=== PATIENT | female | born 1985 | race Hispanic/Latino ===

== ENCOUNTER → 2024-11-23 10:18 | Outpatient (REF) | payer OTHER, SELFPAY ==
[2024-11-23 11:43] LABS: Hematocrit 39.2 % (37.0-47.0); Hemoglobin 13.3 g/dL (12.0-16.0); Mean Corp Hgb Conc. 33.9 g/dL (33.0-37.0); Mean Corpuscular Hgb 30.5 pg (27.0-31.0); Mean Corpuscular Volume 89.9 fL (81.0-99.0); Mean Platelet Volume 11.6 fL (7.4-10.4); Platelet Count 265 10^3/uL (130-400); Red Blood Cell Count 4.36 10^6/uL (4.20-5.40); White Blood Cell Count 6.2 10^3/uL (4.8-10.8)
[2024-11-23 12:08] LABS: ALT (SGPT) 47 U/L (0-35); AST (SGOT) 27 U/L (14-36); Alkaline Phosphatase 173 U/L (38-126); Blood Urea Nitrogen 12 mg/dl (7-17); Calcium 11.5 mg/dl (8.4-10.2); Carbon Dioxide 26 mmol/L (22-30); Chloride 110 mmol/L (98-107); Glucose 102 mg/dl (70-99); HDL Cholesterol 38 mg/dl; LDL Cholesterol, Calculated 156 mg/dl; Potassium 4.8 mmol/L (3.5-5.1); Sodium 141 mmol/L (135-145); Total Bilirubin 0.5 mg/dl (0.2-1.3); Total Cholesterol 225 mg/dl (50-199); Triglyceride 157 mg/dl (10-149); Very Low Density Lipoprotein 31 mg/dl (0-30); eGFR > 60.00
[2024-11-23 12:36] LABS: TSH Reflex To Free T4 1.01 uIU/ml (0.47-4.68)
[2024-11-23 15:09] LABS: Glycohemoglobin (HgbA1c) 5.5 % (4.0-5.6)
== END ==
LOC: CLINIC 10:18
PROVIDERS: ATTENDING PHYSICIAN Nurse Practitioner Adult Health
DX: Z00.00 Encounter for general adult medical examination without abnormal findings (principal)
CPT/HCPCS: 80053; 80061; 83036; 84443; 85027

== ENCOUNTER → 2024-11-30 18:05 | Outpatient (REF) | payer OTHER, SELFPAY ==
[2024-12-11 03:54] LABS: HPV, High Risk Not Detected; HPV, High Risk Source Cervical
== END ==
LOC: CLINIC 18:05
PROVIDERS: ATTENDING PHYSICIAN Nurse Practitioner Adult Health
DX: Z12.4 Encounter for screening for malignant neoplasm of cervix (principal)
CPT/HCPCS: 87624

== ENCOUNTER → 2025-03-05 07:54 | Outpatient (REF) | payer OTHER, SELFPAY ==
[2025-03-05 09:48] LABS: ALT (SGPT) 42 U/L (0-35); AST (SGOT) 25 U/L (14-36); Albumin 4.3 g/dl (3.5-5.0); Alkaline Phosphatase 169 U/L (38-126); Blood Urea Nitrogen 13 mg/dl (7-17); Calcium 11.8 mg/dl (8.4-10.2); Carbon Dioxide 21 mmol/L (22-30); Chloride 111 mmol/L (98-107); Glucose 103 mg/dl (70-99); HDL Cholesterol 34 mg/dl; LDL Cholesterol, Calculated 141 mg/dl; Potassium 4.7 mmol/L (3.5-5.1); Sodium 138 mmol/L (135-145); Total Protein 7.3 g/dl (6.3-8.2); Very Low Density Lipoprotein 55 mg/dl (0-30); eGFR > 60.00
[2025-03-05 09:57] LABS: Vitamin D, 25-OH*** 14.2 ng/mL (30-80)
== END ==
LOC: CLINIC 07:54
PROVIDERS: ATTENDING PHYSICIAN Nurse Practitioner Adult Health
DX: E83.52 Hypercalcemia (principal); E78.2 Mixed hyperlipidemia
CPT/HCPCS: 36415; 80053; 80061; 82306; 83970

== ENCOUNTER → 2025-03-22 12:32 | Outpatient (REF) | payer OTHER, SELFPAY | LOC: WDC 12:32 | PROVIDERS: ATTENDING PHYSICIAN Nurse Practitioner Adult Health | DX: Z12.31 Encounter for screening mammogram for malignant neoplasm of breast (principal) | CPT/HCPCS: 77063; 77067 ==

== ENCOUNTER → 2025-05-07 08:38 | Outpatient (REF) | payer OTHER, SELFPAY ==
[2025-05-07 09:47] LABS: ALT (SGPT) 38 U/L (0-35); AST (SGOT) 22 U/L (14-36); Albumin 4.0 g/dl (3.5-5.0); Alkaline Phosphatase 190 U/L (38-126); Blood Urea Nitrogen 14 mg/dl (7-17); Calcium 11.8 mg/dl (8.4-10.2); Carbon Dioxide 21 mmol/L (22-30); Chloride 113 mmol/L (98-107); Glucose 109 mg/dl (70-99); Potassium 4.7 mmol/L (3.5-5.1); Sodium 136 mmol/L (135-145); Total Protein 7.2 g/dl (6.3-8.2); eGFR > 60.00
[2025-05-07 10:03] LABS: Vitamin D, 25-OH*** 14.6 ng/mL (30-80)
[2025-05-07 12:04] LABS: 24 Hour Urine Total Volume 1100 ml
== END ==
LOC: CLINIC 08:38
PROVIDERS: ATTENDING PHYSICIAN Nurse Practitioner Adult Health
DX: E83.52 Hypercalcemia (principal); E55.9 Vitamin D deficiency, unspecified; R79.89 Other specified abnormal findings of blood chemistry
CPT/HCPCS: 36415; 80053; 81050; 82306; 82340; 83970

== ENCOUNTER → 2025-06-21 13:42 | Outpatient (REF) | payer OTHER, SELFPAY ==
[2025-06-21 16:05] LABS: ALT (SGPT) 30 U/L (0-35); AST (SGOT) 21 U/L (14-36); Albumin 4.5 g/dl (3.5-5.0); Alkaline Phosphatase 247 U/L (38-126); Blood Urea Nitrogen 11 mg/dl (7-17); Calcium 11.5 mg/dl (8.4-10.2); Carbon Dioxide 23 mmol/L (22-30); Chloride 107 mmol/L (98-107); Glucose 89 mg/dl (70-99); Potassium 4.6 mmol/L (3.5-5.1); Sodium 136 mmol/L (135-145); Total Protein 7.6 g/dl (6.3-8.2); eGFR > 60.00
[2025-06-21 16:21] LABS: Vitamin D, 25-OH*** < 12.8 ng/mL (30-80)
== END ==
LOC: CLINIC 13:42
PROVIDERS: ATTENDING PHYSICIAN Nurse Practitioner Adult Health
DX: E55.9 Vitamin D deficiency, unspecified (principal); R79.89 Other specified abnormal findings of blood chemistry; E83.52 Hypercalcemia; R74.8 Abnormal levels of other serum enzymes
CPT/HCPCS: 36415; 80053; 82306; 83970

== ENCOUNTER → 2025-07-12 08:12 | Outpatient (REF) | payer OTHER, SELFPAY | LOC: CLINIC 08:12 | PROVIDERS: ATTENDING PHYSICIAN Nurse Practitioner Adult Health | DX: E83.52 Hypercalcemia (principal); E55.9 Vitamin D deficiency, unspecified; R79.89 Other specified abnormal findings of blood chemistry | CPT/HCPCS: 77080 ==